=== PATIENT | male | born 1980 | race American Indian/Alaskan Native ===

== ENCOUNTER 2017-12-31 04:34 | Emergency (ER) | payer SELFPAY ==
[2017-12-31] MEDS ORDERED: ZOFRAN ONE (04:58)
[2017-12-31] MEDS ORDERED: TORADOL ONE (04:59)
[2017-12-31] MEDS ORDERED: TORADOL IV ONE (05:22)
[2017-12-31] MEDS ORDERED: ZOFRAN IV ONE (05:22)
[2017-12-31 05:30] LABS: Basophils # (Auto) 0.1 K/mm3 (0.0-0.1); Basophils % (Auto) 0.7 % (0.0-1.8); Eosinophils # (Auto) 0.2 K/mm3 (0.0-0.4); Hematocrit 46.2 % (35.5-45.6); Hemoglobin 15.2 gm/dl (11.8-15.2); Lymphocytes # (Auto) 1.8 K/mm3 (1.2-5.4); Lymphocytes % (Auto) 22.3 % (13.4-35.0); Mean Corpuscular HGB Conc 33 % (32-34); Mean Corpuscular Hemoglobin 29 pg (28-32); Mean Corpuscular Volume 87 fl (84-94); Monocytes # (Auto) 0.5 K/mm3 (0.0-0.8); Monocytes % (Auto) 6.6 % (0.0-7.3); Platelet Count 278 K/mm3 (140-440); Red Blood Count 5.32 M/mm3 (3.65-5.03); Red Cell Distribution Width 14.2 % (13.2-15.2)
[2017-12-31 05:33] LABS: Bilirubin,Urine NEG (Negative); Blood,Urine MOD (Negative); Color,Urine Yellow (Yellow); Mucus,Urine FEW /HPF; Protein,Urine <15 mg/dL mg/dL (Negative); Urobilinogen,Urine < 2.0 mg/dL (<2.0)
[2017-12-31 05:47] LABS: BUN/Creatinine Ratio 16; Blood Urea Nitrogen 16 mg/dL (9-20); Calcium 9.3 mg/dL (8.4-10.2); Hemolysis Index 21
[2017-12-31] MEDS ORDERED: NACL 0.9% 1000 ML 2,000 ML IV ONE (06:22)
--- NOTE | 2017-12-31 06:26 | Emergency Department Report ---
<BLAKE LOPEZ - Last Filed: 12/31/17 06:22> ED Abdominal Pain HPI - General Chief Complaint: Abdominal Pain Stated Complaint: KIDNEY STONE, VOMITING Time Seen by Provider: 12/31/17 06:19 Source: patient Mode of arrival: Ambulatory Limitations: No Limitations - History of Present Illness Initial Comments: Early 7-year-old -[place] male reports that he awoken at 2 AM this morning with right flank pain that radiates to the front pelvis as well as nausea and vomiting. Patient denies any dysuria. Patient reports that his pain is a 7 out of 10. Patient denies any urinary incontinence or urinary urgency. Patient reports he is able to urinate without difficulties. Patient reports that he has a history of kidney stones last one was October 2017. Patient reports that the pain is similar to his last kidney stone. She has no other past medical history currently takes no medications on a daily basis and has no known drug allergies. MD Complaint: abdominal pain, flank pain (right) -: During the night Time: 02:00 Location: R flank Radiation: suprapubic Severity scale (0 -10): 10 Quality: cramping, stabbing, sharp Consistency: constant Improves With: medication Worsens With: nothing - Related Data Previous Rx's Medication Instructions Recorded Last Taken Type Ketorolac [Toradol] 10 mg PO Q6H PRN #12 tablet 10/20/17 Unknown Rx Ondansetron [Zofran Odt] 4 mg PO TID PRN #12 tab.rapdis 10/20/17 Unknown Rx Tamsulosin [Flomax] 0.4 mg PO QDAY #7 cap 10/20/17 Unknown Rx oxyCODONE /ACETAMINOPHEN [Percocet 1 tab PO Q6HR PRN #12 tablet 10/20/17 Unknown Rx 5/325] Ketorolac [Toradol] 10 mg PO Q6H PRN #21 tablet 12/31/17 Unknown Rx Ondansetron [Zofran Odt] 4 mg PO Q8HR PRN #20 tab.rapdis 12/31/17 Unknown Rx Tamsulosin [Flomax] 0.4 mg PO QDAY #5 cap 12/31/17 Unknown Rx Allergies Allergy/AdvReac Type Severity Reaction Status Date / Time No Known Allergies Allergy Verified 10/20/17 08:53 ED Review of Systems ROS: Stated complaint: KIDNEY STONE, VOMITING Other details as noted in HPI Comment: All other systems reviewed and negative ED Past Medical Hx - Past Medical History Hx Kidney Stones: Yes - Surgical History Past Surgical History?: No - Social History Smoking Status: Never Smoker Substance Use Type: None - Medications Home Medications: Home Medications Medication Instructions Recorded Confirmed Last Taken Type Ketorolac [Toradol] 10 mg PO Q6H PRN #12 tablet 10/20/17 Unknown Rx Ondansetron [Zofran Odt] 4 mg PO TID PRN #12 tab.rapdis 10/20/17 Unknown Rx Tamsulosin [Flomax] 0.4 mg PO QDAY #7 cap 10/20/17 Unknown Rx oxyCODONE /ACETAMINOPHEN [Percocet 1 tab PO Q6HR PRN #12 tablet 10/20/17 Unknown Rx 5/325] Ketorolac [Toradol] 10 mg PO Q6H PRN #21 tablet 12/31/17 Unknown Rx Ondansetron [Zofran Odt] 4 mg PO Q8HR PRN #20 tab.rapdis 12/31/17 Unknown Rx Tamsulosin [Flomax] 0.4 mg PO QDAY #5 cap 12/31/17 Unknown Rx ED Physical Exam - General Limitations: No Limitations General appearance: alert, in no apparent distress - Head Head exam: Present: atraumatic, normocephalic - Eye Eye exam: Present: normal appearance, EOMI - ENT ENT exam: Present: mucous membranes moist - Respiratory Respiratory exam: Present: normal lung sounds bilaterally. Absent: respiratory distress - Cardiovascular Cardiovascular Exam: Present: regular rate, normal rhythm. Absent: systolic murmur, diastolic murmur, rubs, gallop - GI/Abdominal GI/Abdominal exam: Present: soft, tenderness (upper pubic). Absent: distended - Back Exam Back exam: Present: CVA tenderness (R) - Neurological Exam Neurological exam: Present: alert, oriented X3 - Psychiatric Psychiatric exam: Present: normal affect, normal mood - Skin Skin exam: Present: warm, dry, intact, normal color. Absent: rash ED Course Vital Signs 12/31/17 12/31/17 12/31/17 04:41 05:11 07:26 Temperature 97.9 F 97.9 F Pulse Rate 59 L 55 L Respiratory 18 16 Rate Blood Pressure 133/83 133/83 Blood Pressure [Left] Blood Pressure [Right] O2 Sat by Pulse 98 Oximetry 12/31/17 12/31/17 08:34 08:47 Temperature 98 F 98.1 F Pulse Rate 66 86 Respiratory 18 18 Rate Blood Pressure Blood Pressure 108/66 [Left] Blood Pressure 116/72 [Right] O2 Sat by Pulse 100 98 Oximetry ED Medical Decision Making - Lab Data Result diagrams: 12/31/17 05:15 12/31/17 05:15 Lab Results 12/31/17 12/31/17 12/31/17 Range/Units 05:15 05:15 05:15 WBC 8.0 (4.5-11.0) K/mm3 RBC 5.32 H (3.65-5.03) M/mm3 Hgb 15.2 (11.8-15.2) gm/dl Hct 46.2 H (35.5-45.6) % MCV 87 (84-94) fl MCH 29 (28-32) pg MCHC 33 (32-34) % RDW 14.2 (13.2-15.2) % Plt Count 278 (140-440) K/mm3 Lymph % (Auto) 22.3 (13.4-35.0) % [place] % (Auto) 6.6 (0.0-7.3) % Eos % (Auto) 2.0 (0.0-4.3) % Baso % (Auto) 0.7 (0.0-1.8) % Lymph # 1.8 (1.2-5.4) K/mm3 [place] # 0.5 (0.0-0.8) K/mm3 Eos # 0.2 (0.0-0.4) K/mm3 Baso # 0.1 (0.0-0.1) K/mm3 Seg Neutrophils % 68.4 (40.0-70.0) % Seg Neutrophils # 5.5 (1.8-7.7) K/mm3 Sodium 143 (137-145) mmol/L Potassium 3.5 L (3.6-5.0) mmol/L Chloride 104.0 (98-107) mmol/L Carbon Dioxide 24 (22-30) mmol/L Anion Gap 19 mmol/L BUN 16 (9-20) mg/dL Creatinine 1.0 (0.8-1.5) mg/dL Estimated GFR > 60 ml/min BUN/Creatinine Ratio 16 % Glucose 119 H (75-100) mg/dL Calcium 9.3 (8.4-10.2) mg/dL Urine Color Yellow (Yellow) Urine Turbidity Clear (Clear) Urine pH 6.0 (5.0-7.0) Ur Specific [place] 1.016 (1.003-1.030) Urine Protein <15 mg/dl (Negative) mg/dL Urine Glucose (UA) 50 (Negative) mg/dL Urine Ketones Neg (Negative) mg/dL Urine Blood Mod (Negative) Urine Nitrite Neg (Negative) Urine Bilirubin Neg (Negative) Urine Urobilinogen < 2.0 (<2.0) mg/dL Ur Leukocyte Esterase Neg (Negative) Urine WBC (Auto) 4.0 (0.0-6.0) /HPF Urine RBC (Auto) 54.0 (0.0-6.0) /HPF Urine Mucus Few /HPF - Medical Decision Making Patient has been evaluated by this provider in fast track. IV insertion with IV Toradol in IV Zofran was given in triage. This provider ordered normal saline [address] scan without contrast. - Differential Diagnosis kidney stone, acute back pain, bladder infection Critical care attestation.: If time is entered above; I have spent that time in minutes in the direct care of this critically ill patient, excluding procedure time. ED Disposition Clinical Impression: Bilateral kidney stones Disposition: DC-01 TO HOME OR SELFCARE Condition: Stable Instructions: Ketorolac (By mouth), Kidney Stones (ED) Additional Instructions: Follow-up with a primary care doctor in 3-5 days or if symptoms worsen and continue return to emergency room as soon as possible. Prescriptions: Ketorolac [Toradol] 10 mg PO Q6H PRN #21 tablet PRN Reason: Pain Ondansetron [Zofran Odt] 4 mg PO Q8HR PRN #20 tab.rapdis PRN Reason: Nausea Tamsulosin [Flomax] 0.4 mg PO QDAY #5 cap Referrals: PRIMARY CARE, [Primary Care Provider] - 3-5 Days CARMELINA DOOLEY MD [Staff Physician] - 3-5 Days [facility] [Outside] - 3-5 Days [facility] [Outside] - 3-5 Days Forms: Work/School Release Form(ED) <RENEE WEI - Last Filed: 12/31/17 09:04> ED Medical Decision Making - Lab Data Result diagrams: 12/31/17 05:15 12/31/17 05:15 - Medical Decision Making Patient was signed out to me by Macarena Lopez for a pending CT scan results. CT scan result has been confirmed with small kidney stone. As per Mack Lopez, patient to be discharge if CT scan is negative for emergency situations. Patient discharged with Toradol. Patient discharged with pain under control. No nausea or vomiting. Patient is stable. I referred patient to Follow-up with a primary care doctor in 3-5 days or if symptoms worsen and continue return to emergency room as soon as possible. At time of discharge, the patient does not seem toxic or ill in appearance. No acute signs of distress noted. Patient agrees to discharge treatment plan of care. No further questions noted by the patient. ED Disposition Is pt being admited?: No Does the pt Need Aspirin: No
[2017-12-31] MEDS ORDERED: MORPHINE IV ONE (07:16)
--- NOTE | 2017-12-31 07:24 | Cat Scan Report ---
FINAL REPORT PROCEDURE: CT ABDOMEN PELVIS WO CON TECHNIQUE: Computerized axial tomography of the abdomen and pelvis was performed without intravenous contrast. This study is performed without intravascular contrast material and its sensitivity for abdominal and pelvic pathology, including neoplasms, inflammation, abscess, free fluid, thrombosis, arterial dissection and infarction, is reduced compared with a contrast enhanced study. HISTORY: right flank pain that migrates to the pelvis COMPARISON: No prior studies are available for comparison. FINDINGS: Visualized lower thorax: No significant abnormality. Liver: Normal size and attenuation. Spleen: Normal size and attenuation. Gallbladder and biliary system: Normal. Pancreas: Normal. Adrenals: Normal. Kidneys: There is moderate right hydronephrosis and hydroureter. There are tiny stones in both kidneys.. GI tract: There is no bowel obstruction, colitis or enteritis. The appendix is normal.. Lymph nodes and mesentery: Normal. Vasculature: Normal. Bladder: There is a stone in the urinary bladder measuring 5 millimeters which may have recently passed from the right ureter.. Reproductive organs: Normal. Peritoneum: There is no ascites or free air, abscess or adenopathy. Musculoskeletal structures: No significant abnormality. Other: None. IMPRESSION: There is moderate right hydronephrosis and hydroureter. There are tiny stones in both kidneys.. There is a stone in the urinary bladder measuring 5 millimeters which may have recently passed from the right ureter. There is no bowel obstruction, colitis or enteritis. The appendix is normal.. There is no ascites or free air, abscess or adenopathy. .
[2017-12-31 08:56] VITALS: BP 108/66
== END 2017-12-31 08:47 | disposition home or self-care (01) ==
LOC: ED 04:34
DX: N20.0 Calculus of kidney (principal)
CPT/HCPCS: 36415; 74176; 80048; 81001; 85025; 96361; 96374; 96375; 99284; J1885; J2270; J2405; J7030